=== PATIENT | male | born 1975 | race Caucasian/White ===

== ENCOUNTER → 2021-08-13 11:10 | Outpatient (BNVA) | payer BC, SELFPAY | PROVIDERS: Family Provider Nurse Practitioner; PCP Nurse Practitioner Family; Visit Provider Nurse Practitioner Family | DX: I10 Essential (primary) hypertension (principal); F41.9 Anxiety disorder, unspecified; E66.9 Obesity, unspecified; Z12.5 Encounter for screening for malignant neoplasm of prostate; J30.2 Other seasonal allergic rhinitis; R53.83 Other fatigue; R53.1 Weakness; Z12.11 Encounter for screening for malignant neoplasm of colon; Z86.010 Personal history of colon polyps | CPT/HCPCS: 80053; 80061; 84402; 84403; 84443; G0103 ==

== ENCOUNTER → 2021-08-15 13:53 | Outpatient (BNVA) | payer BC, SELFPAY | PROVIDERS: Family Provider Nurse Practitioner; PCP Nurse Practitioner Family; Visit Provider Nurse Practitioner Family | DX: R73.9 Hyperglycemia, unspecified (principal) | CPT/HCPCS: 83036 ==

== ENCOUNTER 2021-10-05 06:05 | Day surgery (SDC) | payer BC, SELFPAY ==
[2021-10-03 14:31] VITALS: BMI 54.2
[2021-10-05 06:24] VITALS: BP 114/70; PULSE 64; RESP 20; TEMP 36.1; O2SAT 98
[2021-10-05] MEDS: sodium chloride 0.9% 1,000 ML 30 ML IV (06:30)
--- NOTE | 2021-10-05 06:53 | P.HP_ITS ---
Providers/Chief Complaint Chief Complaint: Need for screening colonoscopy History of Present Illness Franklin Menendez is a 46 year old male who presents for a screening colonoscopy Review of Systems General: Reports: 10 or more systems reviewed and unremarkable except in HPI and below Medications/Allergies Home Medications Medication Instructions Recorded Confirmed Last Taken Type fexofenadine 60 mg-pseudoephedrine 1 tab PO Q12H PRN 10 Days #20 tab 08/13/21 10/03/21 10/03/21 Rx ER 120 mg tablet,ext.release,12 hr (Karla-D 12 Hour) levocetirizine 5 mg tablet (Xyzal) 5 mg PO DAILY 90 Days #90 tab 08/13/21 10/03/21 10/03/21 Rx naltrexone 8 mg-bupropion 90 mg 2 tab PO BID 30 Days #120 tab 08/13/21 10/03/21 09/27/21 Rx tablet,extended release (Contrave) olmesartan 20 mg tablet 20 mg PO DAILY 90 Days #90 tab 08/13/21 10/03/21 10/04/21 07:00 Rx diabetic test strips #1 ea 08/15/21 08/28/21 Unknown Rx glucometer #1 ea 08/15/21 08/28/21 Unknown Rx lancets #100 ea 08/15/21 08/28/21 Unknown Rx metformin 500 mg tablet,extended 500 mg PO BID 30 Days #60 tab 08/15/21 10/03/21 10/03/21 Rx release 24 hr ibuprofen 800 mg tablet 800 mg PO Q8H PRN 10/03/21 10/03/21 10/03/21 History Allergies Allergy/AdvReac Type Severity Reaction Status Date / Time Penicillins Allergy unknown Verified 10/03/21 14:31 PFSH Acute PFSH: Medical History Diabetes mellitus Obesity Personal history of colonic polyps Seasonal allergies Social History Smoking and tobacco status: never smoked Quit status (tobacco): has quit using tobacco Year quit tobacco: 45 days Vitals/I&O/Wt Last Vital Signs Temp 97 F L 10/05/21 06:24 Pulse 64 10/05/21 06:24 Resp 20 H 10/05/21 06:24 BP 114/70 10/05/21 06:24 Pulse Ox 98 10/05/21 06:24 Weight last 48 hrs Weight 378 lb Physical Exam Narrative: General : Patient is well developed , no acute distress, oriented x3 Head : Normal cephalic, a-traumatic. Ears : Pinnae and external canal are normal. Hearing is normal. Eyes : PERRLA, Sclera and injection are normal. No conjunctival discharge. Nose : Mucous membranes are without erythema. Throat : buccal mucosa is normal, gums are without significant recession or hypertrophy. Lungs : Equal chest rise bilaterally, no use of accessory muscles, trachea is midline. Cor : Rate and rhythm are normal. Abdomen : Soft, ND, NT, no g/r/m Extremities : No edema, no cyanosis or clubbing, dorsalis pedis pulses are present bilaterally, non-tender to palpation of calves. Upper extremities are normal bilaterally. Back : non-tender to palpation, no CVA tenderness. Neuro : CN II - XII intact, Upper and lower extremities have equal and full str ength A&P Assessment and plan (1) Colon cancer screening: Status: Acute Plan Colonoscopy The risks and benefits of the procedure, including bleeding, infection, intestinal perforation requiring surgery, missed lesion, or explained to the patient. He is understanding of the risks and wishes to proceed. Attestations Medical Necessity Statement*: patient will be discharged home Coding Level of Care Code Acute Subcontract Administrator for Sarah Og Diagnoses Colon cancer screening Z12.11
--- NOTE | 2021-10-05 06:56 | P.ANESASSM_ITS ---
Documented by User: Elio Robles Jr, NEON GLASS BLOWER 10/05/21 06:58 Pre-Anesthetic Assessment Height/Weight: Height 1.78 m Weight 171.458 kg Temp Pulse Resp BP Pulse Ox 97 F L 64 20 H 114/70 98 10/05/21 06:24 10/05/21 06:24 10/05/21 06:24 10/05/21 06:24 10/05/21 06:24 Preop Diagnosis: Need for colon screening Operation Date: 10/05/21 07:00 Proposed Procedures p Colonoscopy 68027,Z12.11(Not Applicable) - Harry Cruz, DO Was Beta Alberto taken within 24 hours: N/A Was Clonidine taken within 24 hours: N/A Last intake: Intake Last Liquid Date 10/04/21 Last Liquid Time 21:00 Last Solid Date 10/03/21 Last Solid Time 23:00 Social No alcohol and No tobacco Exam alert, oriented x 3, clear to auscultation bilaterally and regular rate & rhythm Airway Submandibular: within normal limits Cervical ROM: within normal limits Mallampati: Class II Dentition: full Pulmonary None reported CV/HEM None reported None reported Hepatic None reported GI None reported Metabolic Diabetes Mellitus and Morbid Obesity [facility] None reported Neuropsych None reported Anesthetic Plan ASA status: 2 Anesthesia: MAC Risk of > 500 ml blood loss (7ml/kg in children): No Medications/Allergies Home Medications Medication Instructions Recorded Confirmed Last Taken Type fexofenadine 60 mg-pseudoephedrine 1 tab PO Q12H PRN 10 Days #20 tab 08/13/21 10/03/21 10/03/21 Rx ER 120 mg tablet,ext.release,12 hr (Karla-D 12 Hour) levocetirizine 5 mg tablet (Xyzal) 5 mg PO DAILY 90 Days #90 tab 08/13/21 10/03/21 10/03/21 Rx naltrexone 8 mg-bupropion 90 mg 2 tab PO BID 30 Days #120 tab 08/13/21 10/03/21 09/27/21 Rx tablet,extended release (Contrave) olmesartan 20 mg tablet 20 mg PO DAILY 90 Days #90 tab 08/13/21 10/03/21 10/04/21 07:00 Rx diabetic test strips #1 ea 08/15/21 08/28/21 Unknown Rx glucometer #1 ea 08/15/21 08/28/21 Unknown Rx lancets #100 ea 08/15/21 08/28/21 Unknown Rx metformin 500 mg tablet,extended 500 mg PO BID 30 Days #60 tab 08/15/21 10/03/21 10/03/21 Rx release 24 hr ibuprofen 800 mg tablet 800 mg PO Q8H PRN 10/03/21 10/03/21 10/03/21 History Allergies Allergy/AdvReac Type Severity Reaction Status Date / Time Penicillins Allergy unknown Verified 10/03/21 14:31 Current Medications Generic Name Dose Route Start Last Admin Trade Name Freq PRN Reason Stop Dose Admin Sodium Chloride 1,000 mls @ 30 mls/hr 10/05/21 06:15 10/05/21 06:30 Sodium Chloride 0.9% IV 10/06/21 06:14 30 mls/hr .Q24H JOSELYN Administration PFSH Anesthesia Medical History Diabetes mellitus Obesity Personal history of colonic polyps Seasonal allergies Social History Smoking and tobacco status: never smoked Quit status (tobacco): has quit using tobacco Year quit tobacco: 45 days Data Anesthesia Cardiac Studies: No Data to Display
[2021-10-05 07:28] VITALS: BP 129/62; PULSE 73; RESP 16; TEMP 36.2; O2SAT 96
[2021-10-05 07:33] VITALS: BP 127/59; PULSE 65; RESP 18; O2SAT 100
[2021-10-05 07:43] VITALS: BP 138/70; PULSE 59; RESP 18; O2SAT 96
--- NOTE | 2021-10-05 13:41 | ANE.PACU2 ---
Inpatient post-anesthesia follow up: Airway intact: Yes Vital signs: Temperature 97.2 F Pulse Rate 59 Respiratory Rate 18 Blood Pressure 138/70 Pulse Oximetry 96 Oxygen Delivery Me thod Room Air Oxygen Flow Rate 2 Fraction of Inspir ed Oxygen Hydration adequate: Yes Nausea and vomiting: No Pain level: 1 Mental status: Baseline
== END 2021-10-05 08:00 | disposition home or self-care (01) ==
PROVIDERS: Visit Provider Surgery
PROC: 0DJD8ZZ Inspection of Lower Intestinal Tract, Via Natural or Artificial Opening Endoscopic (ICD-10-PCS; CPT 45378; principal; 2021-10-05 07:00)
DX: Z12.11 Encounter for screening for malignant neoplasm of colon (principal); D12.0 Benign neoplasm of cecum; D12.4 Benign neoplasm of descending colon; D12.3 Benign neoplasm of transverse colon; E11.9 Type 2 diabetes mellitus without complications; E66.01 Morbid (severe) obesity due to excess calories; Z68.43 Body mass index [BMI] 50.0-59.9, adult; Z86.010 Personal history of colon polyps
CPT/HCPCS: 45385; 88305; J2704; J7030

== ENCOUNTER → 2022-01-22 09:46 | Outpatient (BNVA) | payer BC, SELFPAY | PROVIDERS: Visit Provider Nurse Practitioner Family | DX: D12.6 Benign neoplasm of colon, unspecified (principal); E66.9 Obesity, unspecified; E11.9 Type 2 diabetes mellitus without complications; E78.5 Hyperlipidemia, unspecified; J30.2 Other seasonal allergic rhinitis; I10 Essential (primary) hypertension; R79.89 Other specified abnormal findings of blood chemistry; R68.89 Other general symptoms and signs | CPT/HCPCS: 80053; 80061; 83036; 84402; 84403 ==

== ENCOUNTER → 2022-08-23 11:52 | Outpatient (BNVA) | payer BC, SELFPAY | PROVIDERS: PCP Nurse Practitioner Family; Visit Provider Nurse Practitioner Family | DX: R79.89 Other specified abnormal findings of blood chemistry (principal); E11.9 Type 2 diabetes mellitus without complications; E66.9 Obesity, unspecified; I10 Essential (primary) hypertension; J30.2 Other seasonal allergic rhinitis; E78.5 Hyperlipidemia, unspecified | CPT/HCPCS: 80053; 80061; 83036; 84402; 84403 ==

== ENCOUNTER → 2023-06-16 11:44 | Outpatient (BNVA) | payer OTHER, SELFPAY | PROVIDERS: PCP Nurse Practitioner Family; Visit Provider Nurse Practitioner Family | DX: I10 Essential (primary) hypertension (principal); E78.5 Hyperlipidemia, unspecified; E11.9 Type 2 diabetes mellitus without complications; R79.89 Other specified abnormal findings of blood chemistry; E66.9 Obesity, unspecified | CPT/HCPCS: 80053; 80061; 83036; 84402; 84403; 85025; G0103 ==

== ENCOUNTER → 2023-12-18 13:30 | Outpatient (BNVA) | payer BC, SELFPAY | PROVIDERS: PCP Nurse Practitioner Family; Visit Provider Nurse Practitioner Family | DX: E78.2 Mixed hyperlipidemia; I10 Essential (primary) hypertension; E66.9 Obesity, unspecified; E11.9 Type 2 diabetes mellitus without complications; F41.9 Anxiety disorder, unspecified; F33.41 Major depressive disorder, recurrent, in partial remission | CPT/HCPCS: 80053; 80061; 83036; 85025 ==